=== PATIENT | female | born 1975 | race Caucasian/White ===

== ENCOUNTER 2018-10-11 21:29 | Inpatient (IN) | payer OTHER ==
[2018-10-11] MEDS ORDERED: ACETAMINOPHEN 325 MG TAB PO (23:00)
[2018-10-11] MEDS ORDERED: GLUCOSE GEL 15 GRAM TUBE BUCCAL (23:30)
[2018-10-11] MEDS ORDERED: GLUCAGON 1 MG INJ IM (23:30)
[2018-10-11] MEDS ORDERED: DEXTROSE 50% 50 ML SYRINGE IV ×2 (23:30)
[2018-10-11] MEDS ORDERED: GLUCOSE GEL 15 GRAM TUBE PO ×2 (23:30)
[2018-10-12] MEDS: ACCU-CHEK XX (01:11)
[2018-10-12 05:47] LABS: ADD MAN DIFF? NO
[2018-10-12 05:50] LABS: WHITE BLOOD COUNT 5.2 10^3/ul (4.8-10.8)
[2018-10-12 05:51] LABS: BASOPHILS % 0.6 % (0.0-2.0); EOSINOPHILS % 0.2 % (0.0-7.0); HEMATOCRIT 34.8 % (37.0-47.0); HEMOGLOBIN 11.4 g/dl (12.0-16.0); LYMPHOCYTES # 1.4 10^3/ul (0.8-2.9); LYMPHOCYTES % 26.5 % (15.0-51.0); MEAN CORPUSCULAR HEMOGLOBIN 26.9 pg (29.0-33.0); MEAN CORPUSCULAR HGB CONC 32.8 g/dl (32.0-37.0); MEAN CORPUSCULAR VOLUME 82.1 fl (82.0-101.0); MEAN PLATELET VOLUME 10.6 fl (7.4-10.4); MONOCYTE # 0.5 10^3/ul (0.3-0.9); NEUTROPHIL # 3.2 10^3/ul (1.6-7.5); NEUTROPHILS % 62.1 % (39.0-77.0); PLATELET COUNT 187 10^3/UL (140-415); RED BLOOD COUNT 4.24 10^6/ul (4.20-5.40); RED CELL DISTRIBUTION WIDTH 14.2 % (11.5-14.5)
[2018-10-12 06:16] LABS: ALANINE AMINOTRANSFERASE 13 IU/L (13-69); ALBUMIN 2.9 g/dl (3.3-4.9); ALBUMIN/GLOBULIN RATIO 1.07; ALKALINE PHOSPHATASE 102 IU/L (42-121); ANION GAP 9 (5-13); ASPARTATE AMINO TRANSFERASE 19 IU/L (15-46); BILIRUBIN,INDIRECT 0.4 mg/dl (0-1.1); BILIRUBIN,TOTAL 0.4 mg/dl (0.2-1.3); BLOOD UREA NITROGEN 5 mg/dl (7-20); CALCIUM 7.8 mg/dl (8.4-10.2); CARBON DIOXIDE 20 mmol/L (21-31); CHLORIDE 111 mmol/L (97-110); CREATININE 0.45 mg/dl (0.44-1.00); Estimated GFR > 60 mL/min (>60); GLUCOSE 158 mg/dl (70-220); POTASSIUM 3.4 mmol/L (3.5-5.1); SODIUM 140 mmol/L (135-144); TOTAL PROTEIN 5.6 g/dl (6.1-8.1)
[2018-10-12] MEDS ORDERED: ACCU-CHEK XX (07:00)
[2018-10-12] MEDS ORDERED: INSULIN LISPRO 25 UNIT SQ (07:00)
[2018-10-12] MEDS: metFORMIN 500 MG TAB PO (08:12)
[2018-10-12] MEDS: IBUPROFEN 200 MG TAB PO ×3 (08:12→21:00)
[2018-10-12] MEDS: DOCUSATE SODIUM 100 MG CAP PO ×2 (08:12→21:00)
[2018-10-12] MEDS: PAROXETINE 10 MG TAB PO (08:12)
[2018-10-12] MEDS: FERROUS SULFATE (EC) 325 MG TAB PO ×2 (08:12→21:38)
[2018-10-12] MEDS: HYDROCHLOROTHIAZIDE 25 MG TAB PO (08:13)
[2018-10-12] MEDS: INSULIN ASPART [NOVOLOG] 3 ML PEN SC ×6 (08:33→21:00)
[2018-10-12] MEDS: POTASSIUM CHLORIDE (SR) 10 MEQ TAB PO (15:00)
[2018-10-12] MEDS ORDERED: INSULIN LISPRO 20 UNIT SQ (17:30)
[2018-10-12] MEDS ORDERED: INSULIN ASPART [NOVOLOG] 3 ML PEN SC (18:00)
[2018-10-12] MEDS ORDERED: INSULIN GLARGINE [LANTus] (100 UNITS/ML) SYG SC (21:00)
[2018-10-12] MEDS: ATORVASTATIN 40 MG TAB PO (21:38)
[2018-10-12] MEDS: BACLOFEN 10 MG TAB PO (21:38)
[2018-10-12] MEDS: GABAPENTIN 300 MG CAP PO (21:39)
[2018-10-12] MEDS: INSULIN GLARGINE [LANTus] (100 UNITS/ML) SYG SC (21:43)
[2018-10-13] MEDS: ACCU-CHEK XX (02:00)
[2018-10-13 06:33] LABS: ALANINE AMINOTRANSFERASE 17 IU/L (13-69); ALBUMIN 3.2 g/dl (3.3-4.9); ALKALINE PHOSPHATASE 105 IU/L (42-121); ANION GAP 10 (5-13); ASPARTATE AMINO TRANSFERASE 30 IU/L (15-46); BILIRUBIN,INDIRECT 0.3 mg/dl (0-1.1); BILIRUBIN,TOTAL 0.3 mg/dl (0.2-1.3); BLOOD UREA NITROGEN 3 mg/dl (7-20); CALCIUM 8.5 mg/dl (8.4-10.2); CARBON DIOXIDE 23 mmol/L (21-31); CHLORIDE 105 mmol/L (97-110); CREATININE 0.38 mg/dl (0.44-1.00); Estimated GFR > 60 mL/min (>60); GLUCOSE 88 mg/dl (70-220); SODIUM 138 mmol/L (135-144); TOTAL PROTEIN 6.1 g/dl (6.1-8.1)
[2018-10-13 07:16] LABS: POTASSIUM 2.6 mmol/L (3.5-5.1)
[2018-10-13] MEDS ORDERED: POTASSIUM CHLORIDE (SR) 20 MEQ TAB PO (07:30)
[2018-10-13] MEDS: metFORMIN 500 MG TAB PO (08:53)
[2018-10-13] MEDS: FERROUS SULFATE (EC) 325 MG TAB PO ×2 (08:53→21:03)
[2018-10-13] MEDS: PAROXETINE 10 MG TAB PO (08:53)
[2018-10-13] MEDS: DOCUSATE SODIUM 100 MG CAP PO ×2 (08:53→21:00)
[2018-10-13] MEDS: POTASSIUM CHLORIDE (SR) 20 MEQ TAB PO ×2 (08:54→11:28)
[2018-10-13] MEDS: IBUPROFEN 200 MG TAB PO ×3 (08:54→21:04)
[2018-10-13] MEDS: INSULIN ASPART [NOVOLOG] 3 ML PEN SC ×7 (08:56→21:06)
[2018-10-13] MEDS: HYDROCHLOROTHIAZIDE 25 MG TAB PO (08:57)
[2018-10-13] MEDS: BACLOFEN 10 MG TAB PO (21:03)
[2018-10-13] MEDS: ATORVASTATIN 40 MG TAB PO (21:03)
[2018-10-13] MEDS: GABAPENTIN 300 MG CAP PO (21:03)
[2018-10-13] MEDS: INSULIN GLARGINE [LANTus] (100 UNITS/ML) SYG SC (21:08)
[2018-10-14] MEDS: ACCU-CHEK XX (02:00)
[2018-10-14 06:26] LABS: ANION GAP 8 (5-13); BLOOD UREA NITROGEN 7 mg/dl (7-20); CALCIUM 8.8 mg/dl (8.4-10.2); CARBON DIOXIDE 22 mmol/L (21-31); CHLORIDE 106 mmol/L (97-110); CREATININE 0.41 mg/dl (0.44-1.00); Estimated GFR > 60 mL/min (>60); GLUCOSE 155 mg/dl (70-220); POTASSIUM 3.3 mmol/L (3.5-5.1); SODIUM 136 mmol/L (135-144)
[2018-10-14] MEDS: FERROUS SULFATE (EC) 325 MG TAB PO ×2 (08:12→21:21)
[2018-10-14] MEDS: PAROXETINE 10 MG TAB PO (08:13)
[2018-10-14] MEDS: DOCUSATE SODIUM 100 MG CAP PO ×2 (08:13→21:00)
[2018-10-14] MEDS: IBUPROFEN 200 MG TAB PO ×3 (08:13→21:21)
[2018-10-14] MEDS: HYDROCHLOROTHIAZIDE 25 MG TAB PO (08:14)
[2018-10-14] MEDS: metFORMIN 500 MG TAB PO (08:14)
[2018-10-14] MEDS: INSULIN ASPART [NOVOLOG] 3 ML PEN SC ×7 (08:23→21:00)
[2018-10-14] MEDS: POTASSIUM CHLORIDE (SR) 20 MEQ TAB PO (12:07)
[2018-10-14] MEDS: GABAPENTIN 300 MG CAP PO (21:21)
[2018-10-14] MEDS: ATORVASTATIN 40 MG TAB PO (21:21)
[2018-10-14] MEDS: BACLOFEN 10 MG TAB PO (21:22)
[2018-10-14] MEDS: INSULIN GLARGINE [LANTus] (100 UNITS/ML) SYG SC (21:30)
[2018-10-15] MEDS: ACCU-CHEK XX (02:00)
[2018-10-15] MEDS: INSULIN ASPART [NOVOLOG] 3 ML PEN SC ×4 (08:00→12:31)
[2018-10-15] MEDS: DOCUSATE SODIUM 100 MG CAP PO (09:00)
[2018-10-15] MEDS: PAROXETINE 10 MG TAB PO (09:10)
[2018-10-15] MEDS: metFORMIN 500 MG TAB PO (09:10)
[2018-10-15] MEDS: HYDROCHLOROTHIAZIDE 25 MG TAB PO (09:11)
[2018-10-15] MEDS: IBUPROFEN 200 MG TAB PO ×2 (09:11→12:57)
[2018-10-15] MEDS: FERROUS SULFATE (EC) 325 MG TAB PO (09:12)
== END 2018-10-15 16:40 | disposition home or self-care (01) | DRG 638 ==
LOC: 6WM 21:29
PROVIDERS: Internal Medicine Nephrology
DX: E11.10 Type 2 diabetes mellitus with ketoacidosis without coma (principal); N39.0 Urinary tract infection, site not specified; Z68.41 Body mass index [BMI] 40.0-44.9, adult; E87.2 Acidosis; E88.09 Other disorders of plasma-protein metabolism, not elsewhere classified; E87.6 Hypokalemia; E66.9 Obesity, unspecified; E78.5 Hyperlipidemia, unspecified; Z91.14 Patient's other noncompliance with medication regimen; I10 Essential (primary) hypertension; F41.9 Anxiety disorder, unspecified; F32.9 Major depressive disorder, single episode, unspecified; R60.0 Localized edema; Z79.4 Long term (current) use of insulin; E11.649 Type 2 diabetes mellitus with hypoglycemia without coma
CPT/HCPCS: 80048; 80053; 82962; 84132; 85025; 87081; 93971; 99217; G0378